=== PATIENT | female | born 1935 | race Two or more races ===

== ENCOUNTER 2017-07-05 00:11 | Observation (INO) | payer OTHER ==
[2017-07-05] MEDS ORDERED: fentaNYL 100 MCG/2 ML INJ IVP ONE ×2 (00:31→01:05)
[2017-07-05] MEDS ORDERED: KETOROLAC 15 MG/1 ML SDV ONE (00:49)
[2017-07-05] MEDS ORDERED: KETOROLAC 15 MG/1 ML SDV IVP ONE (00:50)
--- NOTE | 2017-07-05 00:57 | EDPHY ---
H & P Stated Complaint: trip fall r wrist injury Time Seen by Provider: 07/05/17 00:55 HPI/ROS: HPI The patient presents with fall which occurred at about midnight tonight. She fell onto an outstretched arm, injuring her right wrist. She did not lose consciousness, she denies any other injuries. Her pain is severe, radiates throughout her hand up her arm. She does not have any numbness or tingling. She does not have any breaks in the skin. She has no prior injury to this wrist.. REVIEW OF SYSTEMS Constitutional: No fever, no chills. Eyes: No discharge. ENT: No sore throat. Cardiovascular: No chest pain, no palpitations. Respiratory: No cough, no shortness of breath. Gastrointestinal: No abdominal pain, no vomiting. Genitourinary: No hematuria. Musculoskeletal: No back pain. Skin: No rashes. Neurological: No headache. PMHx: Osteoarthritis, prior femur operation of some sort performed by Dr. Mortensen Social history: Lives at home with her daughter, complete most of her ADLs though does not do the cleaning and does not drive. Walks with a cane PHYSICAL General Appearance: Alert, no distress Eyes: Pupils equal and round no pallor or injection ENT, Mouth: Mucous membranes moist Respiratory: There are no retractions, lungs are clear to auscultation Cardiovascular: Regular rate and rhythm Gastrointestinal: Abdomen is soft and non-tender, no masses, bowel sounds normal Neurological: A&O, moves all extremities Skin: Warm and dry, no rashes Musculoskeletal: Neck is supple non tender Extremities: Right wrist with obvious deformity, 2+ radial pulses, sensation is intact in her digits with full range of motion. She has limited range of motion of the wrist secondary to pain. Her right elbow is nontender and she has full range of motion Psychiatric: Patient is oriented X 3, there is no agitation Source: Patient, Family Exam Limitations: No limitations - Personal History Current Tetanus/Diphtheria Vaccine: Yes Current Tetanus Diphtheria and Acellular Pertussis (TDAP): Yes - Medical/Surgical History Hx Asthma: No Hx Chronic Respiratory Disease: No Hx Diabetes: No Hx Cardiac Disease: No Hx Renal Disease: No Hx Cirrhosis: No Hx Alcoholism: No Hx HIV/AIDS: No Hx Splenectomy or Spleen Trauma: No - Social History Smoking Status: Never smoked Constitutional: Initial Vital Signs Temperature (C) 36.4 C 07/05/17 00:18 Heart Rate 77 07/05/17 00:18 Respiratory Rate 18 07/05/17 00:18 Blood Pressure 192/101 H 07/05/17 00:18 O2 Sat (%) 93 07/05/17 00:18 O2 Delivery Mode [Post Nasal Cannula Procedure 4th] O2 Delivery Mode [Post Non-Rebreather Mask Procedure 3rd] O2 Delivery Mode [Post Non-Rebreather Mask Procedure 2nd] O2 Delivery Mode [Post Non-Rebreather Mask Procedure 1st] O2 Delivery Mode [.Immediate Non-Rebreather Mask Pre-Procedure] O2 Delivery Mode Nasal Cannula O2 (L/minute) [Post Procedure 4 4th] O2 (L/minute) [Post Procedure 12 3rd] O2 (L/minute) [Post Procedure 12 2nd] O2 (L/minute) [Post Procedure 12 1st] O2 (L/minute) [.Immediate Pre- 12 Procedure] O2 (L/minute) 2 Allergies/Adverse Reactions: atropine sulfate [From Lomotil] Allergy (Severe, Verified 07/24/11 18:07) Anaphylaxis diphenoxylate HCl [From Lomotil] Allergy (Severe, Verified 07/24/11 18:07) Anaphylaxis oxytetracycline [From Terramycin] Allergy (Severe, Verified 07/24/11 18:07) Anaphylaxis oxytetracycline HCl [From Terramycin] Allergy (Severe, Verified 07/24/11 18:07) Anaphylaxis tetracycline [Tetracycline] Allergy (Severe, Verified 07/25/11 11:40) Anaphylaxis SIGMAMICINA Allergy (Severe, Uncoded 07/24/11 18:07) ANAPHYLAXIS (Antibiotic in smallpox hospital) Home Medications: Medication Instructions Recorded HYDROmorphone HCL [Dilaudid] 2 mg PO 07/24/11 Medical Decision Making - Diagnostics Imaging Results: X-ray right wrist three views shows distal radius fracture with for shortening and angulation, interpreted by me, radiology interpretation is pending. X-ray right elbow two views shows no fracture, no dislocation, interpreted by me , radiology interpretation is pending. Post reduction right wrist x-ray #1 two views shows persistent fracture with limited improvement in alignment, interpreted by me, radiology interpretation is pending. Post reduction right wrist #2 two view shows some improvement anatomic alignment of fracture segments, interpreted by me, radiology interpretation pending. Imaging: I viewed and interpreted images myself Procedures: PROCEDURAL SEDATION Procedure: Procedural sedation. Indication: Distal radius fracture The patient is an appropriate candidate to tolerate procedural sedation. The patient's vital signs and mental status are appropriate. The risks, benefits and alternatives of the sedation were discussed with the patient. The patient is ASA classification 2. The patient's Mallampati airway score was 1 and the patient did meet the 3-3-2 airway measurements. A time out was completed. The patient was sedated with propofol 40 mg. The patient was monitored with continuous pulse oximetry, sod cutter and end tidal CO2. There were no complications and no significant hypoxemia. I performed both the sedation and the procedure. The total time I spent at the bedside during the procedural sedation was 20 minutes. The patient was examined after the procedural sedation and has returned to their pre-sedation baseline with normal vital signs and a normal examination. REDUCTION Procedure: Dislocation reduction. Indication: Dislocation The right wrist was reduced in the usual fashion without complications. Post reduction the patient's neurovascular exam is normal. Post reduction x-ray demonstrates reduction of the joint to the anatomic position. The procedure was performed by myself. SPLINT Procedure: Splint placement. A ortho glass sugar-tong splint was applied to the right wrist by the tech. After application of the splint I returned and re-examined the patient. The splint was adequately immobilizing the joint and distal to the splint the patient's circulation and sensation was intact. However postreduction films demonstrated poor anatomic alignment. Thus the splint was removed and a 2nd splint was placed with wrist in approximately 45 of flexion with some improvement in anatomic alignment. Afterwards the patient had brisk cap refill of the fingers and sensation was intact. Differential Diagnosis: This is an 82-year-old female who presents with a fall onto an outstretched arm with right wrist pain. She has no past medical history though is notably hypertensive here. She has an obvious deformity to her right wrist and is neurovascularly intact. She denies any other injuries. Her fall seems to be mechanical. Differential diagnosis includes distal radius fracture, distal ulnar fracture, wrist dislocation, wrist sprain. In the emergency department, x-rays were obtained. Patient was given Toradol and fentanyl for pain. Hematoma block was performed by me with bupivacaine 0.5 % 10 mL with good result. She was placed in finger traps and procedural sedation was performed to reduce her wrist. Initial reduction was unsatisfactory. I consulted with Dr. Mortensen the patient's orthopedist who is on- call for hand surgery. He recommends that we replaced the splint but flex at the wrist to improved alignment. He recommends that we consult Orthopedics for the patient's injury as it does not involve the hand. The patient had repeat reduction performed with new sugar-tong splint placed with 45 of flexion. Anatomic alignment was improved. However, the patient's pain became progressively worse. She was given Tylenol and Dilaudid for pain control, however her pain was not tolerable. She will require admission to the hospital for pain control. I consulted with Tracie the physician assistant golf course superintendent for Dr. Westfall the orthopedist supervisor product inspection. They will see the patient in consultation but advised hospitalist admission. I have consulted with Dr. Rhodes who will admit the patient. I have updated the patient's family and reviewed the x-rays with them further education. - Data Points Laboratory Results: Laboratory Results 07/05/17 00:42 07/05/17 00:42 07/05/17 07/05/17 00:42 00:42 WBC 7.00 10^3/uL 10^3/uL (3.80-9.50) RBC 4.60 10^6/uL 10^6/uL (4.18-5.33) Hgb 14.2 g/dL g/dL (12.6-16.3) Hct 41.3 % % (38.0-47.0) MCV 89.8 fL fL (81.5-99.8) MCH 30.9 pg pg (27.9-34.1) MCHC 34.4 g/dL g/dL (32.4-36.7) RDW 12.9 % % (11.5-15.2) Plt Count 378 10^3/uL 10^3/uL (150-400) MPV 10.8 fL fL (8.7-11.7) Neut % (Auto) 71.8 % % (39.3-74.2) Lymph % (Auto) 20.1 % % (15.0-45.0) Stewart % (Auto) 7.4 % % (4.5-13.0) Eos % (Auto) 0.3 % L % (0.6-7.6) Baso % (Auto) 0.3 % % (0.3-1.7) Nucleat RBC Rel Count 0.0 % % (0.0-0.2) Absolute Neuts (auto) 5.02 10^3/uL 10^3/uL (1.70-6.50) Absolute Lymphs (auto) 1.41 10^3/uL 10^3/uL (1.00-3.00) Absolute Monos (auto) 0.52 10^3/uL 10^3/uL (0.30-0.80) Absolute Eos (auto) 0.02 10^3/uL L 10^3/uL (0.03-0.40) Absolute Basos (auto) 0.02 10^3/uL 10^3/uL (0.02-0.10) Absolute Nucleated RBC 0.00 10^3/uL 10^3/uL (0-0.01) Immature Gran % 0.1 % % (0.0-1.1) Immature Gran # 0.01 10^3/uL 10^3/uL (0.00-0.10) Sodium 141 mEq/L mEq/L (134-144) Potassium 3.9 mEq/L mEq/L (3.5-5.2) Chloride 104 mEq/L mEq/L (97-110) Carbon Dioxide 24 mEq/l mEq/l (22-31) Anion Gap 13 mEq/L mEq/L (8-16) BUN 18 mg/dL mg/dL (7-23) Creatinine 0.6 mg/dL mg/dL (0.6-1.0) Estimated GFR > 60 Glucose 118 mg/dL H mg/dL (70-100) Calcium 10.3 mg/dL mg/dL (8.5-10.4) Total Bilirubin 0.6 mg/dL mg/dL (0.1-1.4) AST 30 IU/L IU/L (14-46) ALT 33 IU/L IU/L (9-52) Alkaline Phosphatase 111 IU/L IU/L (38-126) Total Protein 7.6 g/dL g/dL (6.3-8.2) Albumin 4.2 g/dL g/dL (3.5-5.0) Medications Given: Discontinued Medications Acetaminophen (Tylenol) 650 mg PO EDNOW ONE Stop: 07/05/17 05:25 Last Admin: 07/05/17 05:40 Dose: 650 mg Fentanyl (Sublimaze) 100 mcg IVP EDNOW ONE Stop: 07/05/17 00:32 Last Admin: 07/05/17 00:51 Dose: 25 mcg Fentanyl (Sublimaze) 25 mcg IVP EDNOW ONE Stop: 07/05/17 01:06 Last Admin: 07/05/17 01:05 Dose: 25 mcg Hydromorphone HCl (Dilaudid) 2 mg PO EDNOW ONE Stop: 07/05/17 05:26 Last Admin: 07/05/17 05:37 Dose: 2 mg Ketorolac Tromethamine (Toradol) 15 mg IVP EDNOW ONE Stop: 07/05/17 00:51 Last Admin: 07/05/17 01:12 Dose: Not Given Propofol (Diprivan) 40 mg IVP EDNOW ONE Stop: 07/05/17 03:13 Last Admin: 07/05/17 03:15 Dose: 40 mg Propofol (Diprivan) 40 mg IVP ONCE ONE Stop: 07/05/17 04:21 Last Admin: 07/05/17 04:20 Dose: 40 mg Departure - Departure Disposition: [facility] Acute Clinical Impression: Elevated blood pressure reading Distal radius fracture, right Qualifiers: Encounter type: initial encounter Fracture type: closed Fracture morphology: Colles' Qualified Code(s): S52.531A - Colles' fracture of right radius, initial encounter for closed fracture Condition: Good
[2017-07-05] MEDS ORDERED: PROPOFOL 200 MG/20 ML VIAL ONE (02:35)
[2017-07-05] MEDS ORDERED: PROPOFOL 200 MG/20 ML VIAL IVP ONE ×2 (03:12→04:20)
[2017-07-05] MEDS ORDERED: ACETAMINOPHEN 500 MG TAB PO ONE (05:24)
[2017-07-05] MEDS ORDERED: HYDROmorphONE/DILAUDID 2 MG TAB PO ONE (05:25)
[2017-07-05] MEDS ORDERED: ACETAMINOPHEN 325 MG TAB ONE (05:27)
[2017-07-05 05:37] LABS: % IMMATURE GRANULYOCYTES 0.1 % (0.0-1.1); ABSOLUTE IMMATURE GRANULOCYTES 0.01 10^3/uL (0.00-0.10); ADD DIFF? NO; ADD MORPH? NO; ADD SCAN? NO; ATYPICAL LYMPHOCYTE FLAG 0 (0-99); FRAGMENT RBC FLAG 0 (0-99); HEMATOCRIT 41.3 % (38.0-47.0); HEMOGLOBIN 14.2 g/dL (12.6-16.3); LEFT SHIFT FLG 0 (0-99); LIPEMIA HEMOLYSIS FLAG 90 (0-99); MEAN CELL HEMOGLOBIN 30.9 pg (27.9-34.1); MEAN CELL HEMOGLOBIN CONCENTR. 34.4 g/dL (32.4-36.7); MEAN CELL VOLUME 89.8 fL (81.5-99.8); MEAN PLATELET VOLUME 10.8 fL (8.7-11.7); PLATELET CLUMPS FLAG 10 (0-99); PLATELET COUNT 378 10^3/uL (150-400); RED CELL DISTRIBUTION WIDTH 12.9 % (11.5-15.2)
[2017-07-05 05:39] LABS: ALANINE AMINOTRANSFERASE 33 IU/L (9-52); ALBUMIN 4.2 g/dL (3.5-5.0); ALKALINE PHOSPHATASE 111 IU/L (38-126); ANION GAP 13 mEq/L (8-16); ASPARTATE AMINOTRANSFERASE 30 IU/L (14-46); BILIRUBIN,TOTAL 0.6 mg/dL (0.1-1.4); CALCIUM 10.3 mg/dL (8.5-10.4); CARBON DIOXIDE 24 mEq/l (22-31); CHLORIDE 104 mEq/L (97-110); CREATININE 0.6 mg/dL (0.6-1.0); GLOMERULAR FILTRATION RATE > 60; GLUCOSE 118 mg/dL (70-100); POTASSIUM 3.9 mEq/L (3.5-5.2); SODIUM 141 mEq/L (134-144); TOTAL PROTEIN 7.6 g/dL (6.3-8.2)
[2017-07-05] MEDS ORDERED: ACETAMINOPHEN 325 MG TAB PO PRN (05:44)
[2017-07-05] MEDS ORDERED: HYDROCODONE/APAP 5/325 TAB PO PRN (05:44)
[2017-07-05] MEDS ORDERED: HYDROmorphONE/DILAUDID 1 MG/ML SYR IVP PRN (05:44)
[2017-07-05] MEDS ORDERED: ONDANSETRON 4 MG/2 ML VIAL IVP PRN (05:44)
[2017-07-05] MEDS ORDERED: ONDANSETRON DISINTEGRATING 4 MG TAB PO PRN (05:44)
[2017-07-05] MEDS ORDERED: hydrALAZINE 20 MG/ML VIAL IVP PRN (05:45)
[2017-07-05] MEDS ORDERED: NS 1,000 ML IV SCH (05:45)
[2017-07-05 07:32] VITALS: RESP 16
--- NOTE | 2017-07-05 09:33 | GCON ---
[f rep st] CONSULTATION DATE OF CONSULTATION: 07/05/2017 CHIEF COMPLAINT: Right wrist pain. HISTORY OF PRESENT ILLNESS: The patient is an 82-year-old female, who presented to the emergency department complaining of a right wrist injury. The patient states around midnight, she woke up to open the door for her daughter, however, she did not turn on the light and tripped, falling on the right outstretched hand. She immediately had pain in the right wrist. She presented to the ER, where she underwent closed reductions x 2. The patient states she had significant pain in the emergency department after the closed reductions, and was therefore admitted to medicine for pain control. We were notified about this patient this AM. The patient states her pain seems to be a little bit better now, it has gone from a 10/10 to a 4/10. The patient states she does not have any numbness or tingling in the right hand. The patient has not noticed any bruising or swelling. She does not have any fever, chills or weakness. PAST MEDICAL HISTORY: The patient states she has osteoarthritis. PAST SURGICAL HISTORY: The patient underwent an ORIF of the left femur for a fracture. She is unsure exactly of the hardware and where the fracture was at. MEDICATIONS: The patient does not take any medications daily. ALLERGIES: No known drug allergies. SOCIAL HISTORY: The patient lives at home with her daughter. She ambulates well without assistance. She is able to complete her activities of daily living. FAMILY HISTORY: Noncontributory. REVIEW OF SYSTEMS: On secondary survey, the patient notes tenderness to palpation at the distal right fibula. Otherwise, no other complaints after a 10 -point review. PHYSICAL EXAMINATION: GENERAL: The patient is a healthy, well appearing female , she is alert, active, in no acute distress. She does not speak Malagasy and her daughter is in the room, interpreting. HEENT: Head is normocephalic, atraumatic. Nose, ears, and mouth appear normal. Eye motion is intact. NECK: Normal in appearance with midline trachea. Full range of motion. Negative Lhermitte's and Spurling's. LUNGS: Chest motion appears normal. Respirations are nonlabored. MUSCULOSKELETAL: Skin is intact over the right upper extremity , and a postreduction splint is in place. The patient is able to move all RUE digits, and has good bevel polisher strength. Comp's soft. FROM elbow and shoulder. There is no ecchymosis, erythema, calor or edema. On examination of the right lower extremity, the patient has tenderness to palpation of the right distal fibula, without any ecchymosis, erythema or deformity. DNVI BUEs. She full range of motion of the ankle, knee and hip x BUEs. Sensation is intact throughout, and strength is intact. Distal pulses 2+ with brisk capillary refill. Calves are soft, nontender, with negative Homans. SKIN: Please see dictation above. Otherwise, no other abrasions, erythema, or tattoos. NEUROLOGICAL: Appears alert and oriented to person, place, and time. Speech is fluid and fluent. PSYCHIATRIC: Affect is normal. RADIOGRAPHIC DATA: X-rays are reviewed from the emergency department, including 2 sets of post-reduction XRs, which show a comminuted and 100% dorsally displaced and shortened distal radius fracture; brought back out to length on final XR series, though with increased dorsal tilt and ~1/3 displacement dorsally. X-ray of the distal fibula show no fracture or dislocation. ASSESSMENT AND PLAN: Right closed distal radius Colles fracture. Dr Joel and I discussed with the patient and her family that at this point, we will not do surgery emergently given the current reduction achieved by the ER. Follow up in the office next Saturday, July 09, 2017, at which time we will decide about possible surgical intervention. The family wishes to avoid surgery if at all possible. In the meantime, she will continue conservative care, including rest, ice, elevation and Tylenol as needed for pain. NWB RUE in splint/sling. She will avoid any NSAIDS and smoking. WBAT BLE's. SCDs and JENIFER hose Rx'd. Per the family, this patient will likely follow-up with Dr. Mortensen, there established orthopedic surgeon. They also understand that follow-up with Dr. Joel is accessible to them, and that they must follow-up with one of the MDs. Pt is okay for discharge from an orthopedic standpoint once pain is well- controlled. The patient was seen and evaluated at the bedside with Dr. Joel, and he agrees to the treatment plan discussed. /[id number]/MODL MTDD
--- NOTE | 2017-07-05 09:33 | GHP ---
[f rep st] HISTORY AND PHYSICAL DATE OF ADMISSION: 07/05/2017 CHIEF COMPLAINT: Arm pain. HISTORY OF PRESENT ILLNESS: An 82-year-old female, with limited past medical history beyond osteopo rosis and arthritis, who presents after a mechanical fall with immediate right arm pain. The patien t was found to have a distal radial fracture, which was set and splinted in the emergency department . She had continued pain and therefore was admitted for orthopedic evaluation and pain control. Up on my interview, the patient is reporting persistent pain of her right arm, is denying any dizziness , any nausea, vomiting, diarrhea, dysuria, hematuria. She has chronic pain of her hips, which has b een unchanged. Denies any headache or trauma to her head with the fall. PAST MEDICAL HISTORY: 1. Osteoporosis. 2. Osteoarthritis. SOCIAL HISTORY: Patient lives with family. Does not smoke, drink, or use illicit drugs. FAMILY HISTORY: Negative for heart disease or stroke. ADVANCED DIRECTIVES: The patient wishes to be full cor, full tube. Her son and daughter would be h er medical decision makers. REVIEW OF SYSTEMS: A 10-point review of systems is negative with the exception of that reported in the HPI. PHYSICAL EXAMINATION: VITAL SIGNS: Blood pressure 172/103, heart rate 93, respiratory rate 20, 95% on 2 L, 36.7. GENERAL: This is a very thin, pleasant female lying flat in bed. HEENT: Exam is n otable for moist mucous membranes. Eye exam is negative for any icterus. CARDIAC: Patient has reg ular rate and rhythm. PULMONARY: Clear to auscultation bilaterally. GASTROINTESTINAL: Positive jay wel sounds. ABDOMEN: Soft and nontender. MUSCULOSKELETAL: The right arm is splinted. There are palpable pulses in both upper extremities. No lower extremity edema is appreciated. NEUROLOGIC: S he is alert and oriented x3. PSYCHIATRIC: She is pleasant and cooperative on interview and examina tion. DATA: White count 7, hematocrit 41.3. Wrist and arm x-rays, which I personally reviewed and interp reted, showed a distal radial fracture. HOSPITAL COURSE BY ISSUE: 1. Acute distal radial fracture. Patient received multiple pain medications in the emergency depar tment, as well as setting of her limb and splinting, with persistent pain. She is being admitted fo r pain control and orthopedic evaluation. I spoke with Dr. Marycruz this morning; he will evaluate her but suspects she will not require operative fixation. He has requested that she remain n.p.o. u ntil their formal consultation. I have written for both p.o. and IV pain medications and IV fluids while the patient is n.p.o. 2. Hypertension/elevated blood pressure. Suspect this is pain related. Patient's pressures came d own once she received adequate pain control. I did place a p.r.n. hydralazine low-dose IV in case s he spikes above 200, as she did in the emergency department. Prophylaxis SCDs as she may go to the operating room. Diet, n.p.o. with IV fluids. DISPOSITION: I expect greater than 2 midnights as the patient is elderly, presenting with acute fra cture, uncontrolled pain, and vital sign abnormalities. Have discussed the case with Dr. Joel. He will see the patient this morning, and make recommendations. /[id number]/MODL
[2017-07-05 09:49] LABS: CHOLESTEROL 175 mg/dL (140-220); CHOLESTEROL/HDL RATIO 2.87 RATIO (1.00-4.44); HIGH DENSITY LIPOPROTEIN 61 mg/dL (40-85); LDL/HDL RATIO 1.52 RATIO (1.00-3.22); LOW DENSITY LIPOPROTEIN 93 mg/dL (80-100); NON-HIGH DENSITY LIPOPROTEIN 114 mg/dL (90-129); TRIGLYCERIDE 109 mg/dL (35-135); VERY LOW DENSITY LIPOPROTEINS 21 mg/dL (8-25)
[2017-07-05 11:53] VITALS: BP 173/87; PULSE 63; TEMP 98.1
--- NOTE | 2017-07-05 13:48 | GDS ---
[f rep st] DISCHARGE SUMMARY DISCHARGE DIAGNOSES: 1. Right distal radial fracture. 2. Pain. 3. Dizziness. 4. Hypertension. CONSULTATIONS: Dr. Joel. STUDIES AND PROCEDURES DONE: Multiple x-rays. PHYSICAL EXAM: GENERAL: The patient is alert. VITAL SIGNS: Afebrile, 36.7, pulse is 62, respirat ory rate 16, blood pressure is 150/76. She is saturating 95% on room air. I have seen and evaluate d the patient on the day of discharge. HOSPITAL COURSE: The patient is an 82-year-old female who presents to the emergency room after a me chanical fall. She was evaluated and diagnosed with: 1. Acute distal radial fracture. She did receive a consultation from Orthopedics during this hospi talization. No surgical intervention has been performed. The patient has been placed in a sling. She has been seen by Physical Therapy, as well as Occupational Therapy, and she will continue these precautions in the outpatient setting. 2. Pain. This is controlled oral pain medication. She has been provided a prescription for this a t the time of disposition. 3. Hypertension. This is intermittent and potentially is related to the patient's acute anxiety as well as pain. She will not be started on any antihypertensive medications at the time of dispositi on, and followup has been arranged for her in the outpatient setting. DISCHARGE MEDICATIONS: I have provided a prescription for oxycodone IR, #25. FOLLOWUP: Will be with Dr. Joel or Dr. Mortensen, pending the patient's choice. She has been evaluated by the embedded case manager and discussed with fingerprint technician present. She will require outpatient therapy as well as supportive care. I have spent greater than 35 minutes in the care, coordination, and management of the patient's disp osition. /[id number]/MODL
[2017-07-05 14:31] VITALS: O2SAT 93
== END 2017-07-05 16:42 | disposition home or self-care (01) ==
LOC: INTOOBSV 05:44 → F3N 07:28
PROVIDERS: ADMIT Hospitalist; ATTEND Hospitalist
PROC: 2W38X1Z Immobilization of Right Upper Extremity using Splint (ICD-10-PCS; principal; 2017-07-05)
DX: S52.531A Colles' fracture of right radius, initial encounter for closed fracture (principal); S52.511A Displaced fracture of right radial styloid process, initial encounter for closed fracture; W01.0XXA Fall on same level from slipping, tripping and stumbling without subsequent striking against object, initial encounter; Y92.003 Bedroom of unspecified non-institutional (private) residence as the place of occurrence of the external cause; M19.91 Primary osteoarthritis, unspecified site; M81.0 Age-related osteoporosis without current pathological fracture; I10 Essential (primary) hypertension; R42 Dizziness and giddiness
CPT/HCPCS: 96374; 97162-GP; 97166-GO; G0378; J1885; J2704; J3010